=== PATIENT | female | born 1955 | race Caucasian/White ===

== ENCOUNTER → 2017-04-07 | Outpatient (CLI) | payer OTHER ==
--- NOTE | 2017-04-07 14:59 | DI ---
XR ANKLE COMPLETE MIN 3VW,04/07/2017 10:56 AM: Clinical History: Right ankle pain. Previous Exam: October 25, 2016 Findings: 3 views of the right ankle are obtained, and demonstrate postsurgical changes consistent with tibiota lar arthroplasty. There are new lucencies within the tibia consistent with postsurgical changes. Several osteophytes are noted. Impression: Status post right tibiotalar arthroplasty.
--- NOTE | 2017-04-14 22:06 | DI ---
LEFT FOOT, 04/07/2017 10:56 AM: Clinical History: Left foot pain. The order for this exam was actually for the right foot, but the le ft foot was examined instead. The right foot exam was performed in the left foot order. The history f or both examinations is foot pain. Previous Exam: None at this facility. 3 weightbearing views are submitted. There is no acute soft tissue, osseous, or joint abnormality. Ex tensive degenerative arthritic changes have developed between the tarsal navicular bone and the [place] form bones and between the cuneiform bones and the first through third metatarsal bones. No bony frag mentation has developed but this may represent early onset of a Charcot joint. The remainder of the f oot examination is unremarkable. Reading: There are extensive sclerotic and proliferative changes between the tarsal navicular bone and the cun eiform bones and between the cuneiform bones and the first through third metatarsal bones. This may r epresent early Charcot joint formation.
--- NOTE | 2017-04-14 22:10 | DI ---
RIGHT FOOT, 04/07/2017 10:56 AM: Clinical History: Right foot pain. The order for this examination is actually for the left foot at th e right foot was examined instead. The history for both examinations is foot pain. Previous Exam: None at this facility. Comparison is made with the recent examination of the right ank le from 04/07/2017. 3 weightbearing views are submitted. The patient is status post total replacement of the ankle joint. The talar dome component and the distal tibial plate articulate normally. There is no definite evide nce of loosening of the prosthetic device. On the lateral view, there is a nonrigid flatfoot deformit y. Mild to moderate degenerative arthritic changes are present in the tarsal joint spaces. There is a prominent metatarsus varus deformity with a hallux valgus deformity. A prominent bunion is present. There is osteoporosis. Readin. Hallux valgus deformity with a bunion. 2. Degenerative arthritic changes of the tarsal joint spaces with a nonrigid flatfoot deformity. 3. Status post total ankle joint replacement. The prosthetic device articulates normally and there i s no evidence of loosening of either prosthetic component.
== END ==
LOC: ORTHO 10:17
PROVIDERS: ATTEND Orthopaedic Surgery
DX: M25.571 Pain in right ankle and joints of right foot (principal); M20.11 Hallux valgus (acquired), right foot; M21.611 Bunion of right foot; M25.572 Pain in left ankle and joints of left foot; M19.072 Primary osteoarthritis, left ankle and foot; Z96.661 Presence of right artificial ankle joint; Z98.890 Other specified postprocedural states
CPT/HCPCS: 73610; 73630

== ENCOUNTER → 2017-04-15 | Outpatient (CLI) | payer OTHER ==
[2017-04-15 15:03] LABS: BLOOD UREA NITROGEN 28 mg/dL (7-22); CALCIUM 9.6 mg/dL (8.7-10.7); CHOL/HDL RATIO 4.93 RATIO (0-4.0); EST GLOMERULAR FILTRATION > 60 (>60 ml/min/1.73m(2)); HDL CHOLESTEROL 43 mg/dL (40-150); SERUM ALBUMIN 4.3 g/dL (3.5-4.8); SERUM CHOLESTEROL 212 mg/dL (120-200)
== END ==
LOC: LAB 09:55
PROVIDERS: ATTEND Physician Assistant Medical
DX: E66.9 Obesity, unspecified (principal); E03.9 Hypothyroidism, unspecified
CPT/HCPCS: 80053; 80061; 84443